=== PATIENT | female | born 1975 | race Caucasian/White ===

== ENCOUNTER → 2020-03-26 | Outpatient (CLI) | payer MEDICARE, OTHER | LOC: MRI 08:30 | DX: M53.3 Sacrococcygeal disorders, not elsewhere classified (principal) | CPT/HCPCS: 36415; 72197; 82565; A9577 ==

== ENCOUNTER → 2020-11-27 | Outpatient (CLI) | payer OTHER, MEDICARE | LOC: KOH-I 11-23 16:00 → MRI 10:10 | DX: M50.30 Other cervical disc degeneration, unspecified cervical region (principal) | CPT/HCPCS: 72141 ==